=== PATIENT | female | born 1965 | race Caucasian/White ===

== ENCOUNTER → 2016-04-04 | Outpatient (CLI) | payer OTHER ==
[~2016-04-04] MED LIST: ESTROGEN; NORCO 325 MG-51 TAB PO; SYNTHROID0.1 MG PO
== END ==
LOC: MC.RAD 08:07
DX: Z12.31 Encounter for screening mammogram for malignant neoplasm of breast (principal)

== ENCOUNTER → 2017-05-27 | Outpatient (CLI) | payer BC | LOC: MC.RAD 07:40 | DX: Z12.31 Encounter for screening mammogram for malignant neoplasm of breast (principal) ==

== ENCOUNTER → 2019-09-01 | Outpatient (CLI) | payer BC | LOC: MC.RAD 11:52 | DX: Z12.31 Encounter for screening mammogram for malignant neoplasm of breast (principal) ==

== ENCOUNTER 2020-09-09 19:17 | Emergency (ER) | payer BC ==
[~2020-09-09] VITALS: Ht 175.3 cm; Wt 68.2 kg
[2020-09-09 20:45] VITALS: BP 137/80; PULSE 78; TEMP 98.4
== END 2020-09-09 20:45 | disposition home or self-care (01) ==
LOC: COL.ER 19:17
DX: S61.217A Laceration without foreign body of left little finger without damage to nail, initial encounter (principal); E07.9 Disorder of thyroid, unspecified; Z23 Encounter for immunization; Z79.890 Hormone replacement therapy; W26.0XXA Contact with knife, initial encounter; Y93.89 Activity, other specified; Y92.009 Unspecified place in unspecified non-institutional (private) residence as the place of occurrence of the external cause

== ENCOUNTER → 2020-09-18 | Outpatient (CLI) | payer BC ==
[2020-09-18 10:42] VITALS: BP 125/79; PULSE 53
== END ==
LOC: COL.ER 10:33
DX: Z48.02 Encounter for removal of sutures (principal)

== ENCOUNTER → 2020-11-21 | Outpatient (CLI) | payer BC | LOC: MC.RAD 09:24 | DX: Z12.31 Encounter for screening mammogram for malignant neoplasm of breast (principal) ==

== ENCOUNTER → 2023-02-20 | Outpatient (CLI) | payer BC | LOC: CANSCHCLI → MC.RAD 07:30 | DX: Z12.31 Encounter for screening mammogram for malignant neoplasm of breast (principal) ==